=== PATIENT | female | born 1975 | race Caucasian/White ===

== ENCOUNTER → 2023-09-04 12:56 | Outpatient (REF) | payer BC, SELFPAY | LOC: WDC 12:56 | PROVIDERS: ATTENDING PHYSICIAN Family Medicine | DX: Z12.31 Encounter for screening mammogram for malignant neoplasm of breast (principal) | CPT/HCPCS: 77063; 77067 ==

== ENCOUNTER → 2023-10-23 12:51 | Outpatient (REF) | payer BC, SELFPAY | LOC: RAD 12:51 | PROVIDERS: ATTENDING PHYSICIAN Obstetrics & Gynecology; FAMILY PHYSICIAN Family Medicine | DX: Z15.09 Genetic susceptibility to other malignant neoplasm (principal) | CPT/HCPCS: 76830; 76856 ==

== ENCOUNTER → 2024-04-29 14:30 | Outpatient (REF) | payer BC, SELFPAY | LOC: HWRAD 14:30 | PROVIDERS: ATTENDING PHYSICIAN Obstetrics & Gynecology; FAMILY PHYSICIAN Family Medicine | DX: Z15.09 Genetic susceptibility to other malignant neoplasm (principal) | CPT/HCPCS: 76830; 76856 ==

== ENCOUNTER → 2024-05-24 11:22 | Outpatient (REF) | payer BC, SELFPAY | LOC: WDC 11:22 | PROVIDERS: ATTENDING PHYSICIAN Nurse Practitioner Adult Health; FAMILY PHYSICIAN Family Medicine | DX: R92.2 Inconclusive mammogram (principal) | CPT/HCPCS: 76641 ==

== ENCOUNTER → 2024-09-05 13:32 | Outpatient (REF) | payer BC, SELFPAY | LOC: WDC 13:32 | PROVIDERS: ATTENDING PHYSICIAN Obstetrics & Gynecology; FAMILY PHYSICIAN Family Medicine | DX: Z12.31 Encounter for screening mammogram for malignant neoplasm of breast (principal) | CPT/HCPCS: 77063; 77067 ==